=== PATIENT | male | born 1990 | race Caucasian/White ===

== ENCOUNTER → 2023-08-01 09:22 | Outpatient (CLI) | payer OTHER, SELFPAY ==
--- NOTE | 2023-08-01 | DI.MRI.S_ITS ---
PROCEDURE: MR HEAD/BRAIN WO/W CON INDICATIONS: 33-year-old male with exophthalmos TECHNIQUE: Noncontrast axial T1 spin echo, axial T2 fast spin echo, sagittal and axial FLAIR, coronal T2 fast spin echo, axial gradient echo, axial diffusion and ADC through the brain. After the administration of contrast, axial and coronal and sagittal 3D VIBE or T1 spin echo with fat saturation through the brain. And dedicated pre and post-contrast images of the orbits were also obtained COMPARISON: None. FINDINGS: Orbits: Bilateral exophthalmos, right greater than left. There is an abundance of intraorbital fat, but no evidence of mass lesion or venous congestion. Extraocular muscles appropriate enhancement and volume. The orbital globe, ocular lens and optic nerve and have a normal appearance. Normal lacrimal glands CSF Spaces: Basal cisterns are patent. No extra-axial fluid collections. Ventricles are normal in size and shape. Brain: No intracranial masses or hemorrhage. Duran/white matter interface is normal. Brainstem appears normal. Diffusion-weighted sequence is unremarkable without evidence of acute infarct. Normal intravascular flow voids are present. No abnormal enhancement. Skull and face: Calvarial marrow is normal in signal. Orbits appear normal. Sinuses: Sinuses and mastoids appear clear other than a small subcentimeter left maxillary retention cyst. IMPRESSION: Bilateral exophthalmos, right greater than left. No mass lesion or venous congestion. Approved by: Gabriel Leyva M.D. on 08/01/2023 at 12:05
== END ==
PROVIDERS: Referring Provider Optometrist; Visit Provider Optometrist
DX: H05.243 Constant exophthalmos, bilateral (principal)
CPT/HCPCS: 70553; A9579